=== PATIENT | female | born 1950 | race Caucasian/White ===

== ENCOUNTER → 2017-10-19 | Outpatient (CLI) | payer MEDICARE, SELFPAY | PROVIDERS: Visit Provider Family Medicine | DX: Z12.31 Encounter for screening mammogram for malignant neoplasm of breast (principal) | CPT/HCPCS: 77067; G0202 ==

== ENCOUNTER → 2018-11-09 09:50 | Outpatient (CLI) | payer MEDICARE, SELFPAY ==
--- NOTE | 2018-11-09 09:57 | MM_ITS ---
MM Dig screening mamm BI w/CAD ORDERING PHYSICIAN : Dylan Salinas MD PATIENT AGE: 68 years GENDER: Female COMPARISON: September 2016, 2016, August 2015 INDICATION: ITS.REASON: SCREENING routine screening. No hormones. No new complaints.. Family history. Sister with breast cancer age 50 TECHNIQUE: Standard CC and MLO images were obtained. R2 CAD reviewed. FINDINGS: Moderate density breast. Mild asymmetry appears similar to previous studies from September 2016, 2016, August 2015 Question slightly decreased sensitivity in areas of greater density but . No dominant or suspicious mass. No suspicious calcifications. No interval change. Bilateral follow-up in one year.: IMPRESSION: . Stable bilateral mammogram no new areas of significant concern. . BI-RADS Category: 2 Benign Finding(s) RECOMMENDED FOLLOW-UP: 1YR 1 YEAR FOLLOW-UP (A letter has been sent to the patient regarding results of the study.)
== END ==
PROVIDERS: PCP Family Medicine; Visit Provider Family Medicine
DX: Z12.31 Encounter for screening mammogram for malignant neoplasm of breast (principal)
CPT/HCPCS: 77067

== ENCOUNTER → 2019-08-17 09:59 | Outpatient (CLI) | payer MEDICARE, SELFPAY ==
--- NOTE | 2019-08-17 10:04 | XR_ITS ---
PROCEDURE: XR KNEE RT 3V CLINICAL INDICATION: RT KNEE PAIN, posterior knee pain for 1 year COMPARISON: No exams were available for comparison FINDINGS: There is joint space narrowing medially with minimal spurring of the medial tibial plateau and medial femoral condyle. There spurring of the tibial spines as well. There is mild narrowing of the patellofemoral space with spurring of the superior and inferior borders of the patella. There is no definite effusion. There is a small periarticular ossification adjacent to the posterior lateral femoral condyle. IMPRESSION: [id number] osteoarthritic changes of the knee as noted Dictated by: Dr. Scotty Gibbons MD 08/17/2019 10:[address] Scotty Gibbons MD in [place] 08/17/2019 10:27
== END ==
PROVIDERS: PCP Family Medicine; Visit Provider Family Medicine
DX: M25.561 Pain in right knee (principal)
CPT/HCPCS: 73562

== ENCOUNTER 2019-10-12 08:00 | Outpatient (RCR) | payer MEDICARE, SELFPAY ==
--- NOTE | 2019-09-26 16:38 | HMH.PTOPEV ---
PT Outpatient Evaluation Rehab PT Outpatient Evaluation Start: 09/26/19 16:08 Freq: Status: Active Protocol: Document 09/26/19 16:27 ESTELLA (Rec: 09/26/19 16:38 ESTELLA [id number]) Electronically Signed By Cody Waldrop, PT 09/26/19 16:27 Outpatient Therapy Subjective History Subjective History Patient is a 68 year old female presenting to outpatient PT with reports of r knee pain that has progressively gotten worse over the past month. Pain is of insidious onset. Most recent diagnostics indicate R knee OA significantly worse in the medial compartment. Comorbidities include HTN and HLD. Chief Complaint Pain,Stiff,Swelling,Weakness Symptom Type Ache Symptoms Relieved By Rest/Positioning,Ice,OTC Meds Symptoms Aggravated By Standing,Bending/Stooping, Physical Activity,Walking Prior Functional Limitations None Current Functional Limitations Lifting,Housework,Standing, Squatting,Recreation Activity, Walking,Stairs,Balance,Bending /Stooping Symptom Description Constant but Variable Level of pain today (0-10) 5 Pain scale - at its best (0-10) 5 Pain scale - at its worst (0-10) 7 Hip/Knee Eval Gait Observation General Gait Pattern Observation Antalgic Gait,Decrease Weight Bear (R) Assistive Device Assistive Devices None / NA Palpation Tenderness right Knee Palpation Finding Tenderness Knee Palpation Overall Comment Medial joint line, lateral hamstring MMT Hip Flexion Strength Grade 4- Good- Hip Abduction Strength Grade 4- Good- Hip Adduction Strength Grade 4- Good- Hip Extension Strength Grade 4- Good- Hip External Rotation Strength Grade 3+ Fair+ Hip Internal Rotation Strength Grade 3+ Fair+ Knee Extension Strength Grade 3+ Fair+ Knee Flexion Strength Grade 4- Good- ROM Hip ROM Reason Not Measured Within Functional Limits Knee Extension Active Range of Motion ( -7 degrees) Knee Flexion Active Range of Motion ( 79 degrees) Special Tests Knee Anterior Drawer Test Negative Right Knee Anterior Christian Test Negative Right Knee Pivot Shift Test Negative Right Knee Posterior Sag ([place] Drawer) Test Negative Right Knee Valgus Stress Test Negative Right Knee Varus Stress Test
== END 2019-10-12 08:05 | disposition home or self-care (01) ==
LOC: PT 08:00
PROVIDERS: PCP Family Medicine; Visit Provider Family Medicine
DX: M17.11 Unilateral primary osteoarthritis, right knee (principal)
CPT/HCPCS: 97010; 97014; 97110; 97140; 97163; G0283

== ENCOUNTER → 2020-07-18 10:48 | Outpatient (CLI) | payer MEDICARE, SELFPAY ==
--- NOTE | 2020-07-18 10:52 | MM_ITS ---
PROCEDURE: MM DIG SCREENING MAMM BI W/CAD Digital Breast Tomosynthesis Included CLINICAL INDICATION: SCREENING There is a history of breast cancer patient's sister diagnosed after menopause. COMPARISON: MG DMSB DIG MAMM-SCREEN ANDRE from 10/13/2016 MG DMSB DIG MAMM-SCREEN ANDRE W/CAD from 10/19/2017 MG [facility] MM Dig screening mamm BI w/CAD from 11/09/2018 TECHNIQUE: Standard CC and MLO images and 3D Tomosynthesis was obtained. R2 CAD reviewed. FINDINGS: Scattered fibroglandular densities are seen in both breasts primarily upper outer quadrants. There are couple of benign-appearing calcifications in each breast. There is no suspicious lesion in either breast and no suspicious microcalcifications. IMPRESSION: Mild to moderate breast density with no suspicious lesions seen BI-RAD Category: 2 Benign Finding(s) FOLLOW-UP: 1YR 1 Year Follow-up (A letter has been sent to the patient regarding results of the study.) Dictated by: Dr. Scotty Gibbons MD 07/20/2020 17:23 Dr. Scotty Gibbons MD in [place] 07/20/2020 17:23
== END ==
PROVIDERS: PCP Family Medicine; Visit Provider Family Medicine
DX: Z12.31 Encounter for screening mammogram for malignant neoplasm of breast (principal)
CPT/HCPCS: 77063; 77067

== ENCOUNTER → 2021-08-13 15:15 | Outpatient (CLI) | payer MEDICARE, SELFPAY ==
--- NOTE | 2021-08-13 15:17 | MM_ITS ---
PROCEDURE INFORMATION: Exam: MG Bilateral Screening 3D Mammography Exam date and time: 08/13/2021 3:17 PM Age: 70 years old Clinical indication: Encounter for screening mammogram for malignant neoplasm of breast. Family history of breast carcinoma. TECHNIQUE: Imaging protocol: Bilateral screening tomosynthesis and 2D mammography including computer-aided detection (CAD) when performed. Comparison: 07/18/2020. 11/09/2018. 10/19/2017. FINDINGS: MAMMOGRAPHY: Breast composition: The breasts are heterogeneously dense, which may obscure small masses. Mass: No suspicious masses. Architectural distortion: No suspicious distortion. Calcifications: No suspicious calcifications. Asymmetric density: None. Skin thickening: None. Axillary adenopathy: None. IMPRESSION: No mammographic evidence of malignancy. Annual screening is recommended unless otherwise clinically indicated. Given the reported risk factors coupled with the patient's breast density, a breast cancer risk assessment may prove useful for further evaluation. ASSESSMENT: BI-RADS Category 1: Negative
== END ==
PROVIDERS: PCP Family Medicine; Visit Provider Family Medicine
DX: Z12.31 Encounter for screening mammogram for malignant neoplasm of breast (principal)
CPT/HCPCS: 77063; 77067

== ENCOUNTER → 2022-02-23 14:13 | Outpatient (CLI) | payer MEDICARE, SELFPAY ==
--- NOTE | 2022-02-23 14:16 | US_ITS ---
FINAL REPORT CLINICAL HISTORY: ENLARGED THYROID,HYPERCHOLESTEROLEMIA FINDINGS: Sonographic images of the thyroid were obtained. The right lobe of the thyroid measures 4.0 x 7.4 x 7.4 cm. The left lobe of the thyroid measures 3.6 x 8.1 x 6.0 cm. The thyroid is diffusely nodular and heterogeneous. A single discrete mass is not seen. The appearance is that of a diffuse goiter. IMPRESSION: Findings consistent with diffuse goiter. Reviewed, Interpreted and Dictated by Chandler Tompkins MD Transcribed by Queenie Espinoza Authenticated by Chandler Tompkins MD on 02/23/2022 04:44:54 PM [facility]
== END ==
PROVIDERS: PCP Family Medicine; Visit Provider Family Medicine
DX: E04.9 Nontoxic goiter, unspecified (principal); E78.00 Pure hypercholesterolemia, unspecified
CPT/HCPCS: 76536

== ENCOUNTER → 2022-09-06 16:51 | Outpatient (CLI) | payer MEDICARE, SELFPAY ==
--- NOTE | 2022-09-06 16:58 | MM_ITS ---
PROCEDURE INFORMATION: Exam: MG Bilateral Screening 3D Mammography Exam date and time: 09/06/2022 4:49 PM Age: 71 years old Clinical indication: Screening examination. Her sister had breast cancer at age 50. TECHNIQUE: Imaging protocol: Bilateral Screening tomosynthesis and 2D mammography including computer-aided detection (CAD) when performed. COMPARISON: 1. MG MM DIG SCREENING MAMM BI W/CAD 08/13/2021 3:18 PM 2. MG MM DIG SCREENING MAMM BI W/CAD 07/18/2020 11:02 AM 3. MG [facility]BI MM Dig screening mamm BI w/CAD 11/09/2018 10:26 AM 4. MG DMSB DIG MAMM-SCREEN ANDRE W/CAD 10/19/2017 8:40 AM FINDINGS: MAMMOGRAPHY: Breast composition: There are scattered areas of fibroglandular density. Mass: None. Architectural distortion: None. Calcifications: No suspicious calcifications. Asymmetric density: None. Skin thickening: None. Axillary adenopathy: None. IMPRESSION: No mammographic evidence of malignancy. Annual screening is recommended unless otherwise clinically indicated. ASSESSMENT: BI-RADS Category 1: Negative
== END ==
PROVIDERS: PCP Internal Medicine Adolescent Medicine; Visit Provider Internal Medicine Adolescent Medicine
DX: Z12.31 Encounter for screening mammogram for malignant neoplasm of breast (principal)
CPT/HCPCS: 77063; 77067

== ENCOUNTER → 2023-08-01 09:05 | Outpatient (CLI) | payer MEDICARE, SELFPAY ==
--- NOTE | 2023-08-01 09:11 | XR_ITS ---
FINAL REPORT CLINICAL HISTORY: POST MENOPAUSAL FINDINGS: Using L1-4, the bone mineral density of the spine is 1.174 g/cm2, corresponding to T-score of 1.2. Using the left hip, the bone mineral density of the femoral neck is 0.832 g/cm2, corresponding to a T-score of -0.1. Using the right hip: The bone mineral density of the femoral neck is 0.939 g/cm2, corresponding to a T-score of 0.8. IMPRESSION: Normal bone mineral density of the lumbar spine and hips. NOTE: T-score: Standard deviation compared with peak bone mass of young adult mean. *Following the recommendations of the International Society of Bone densitometry, classification of hip BMD is based on the lower of two T-scores; total hip or femoral neck. Reviewed, Interpreted and Dictated by Momo Law III, MD Transcribed by Sonam Epstein Authenticated and [facility]
== END ==
PROVIDERS: PCP Internal Medicine Adolescent Medicine; Visit Provider Internal Medicine Adolescent Medicine
DX: Z78.0 Asymptomatic menopausal state (principal)
CPT/HCPCS: 77080

== ENCOUNTER → 2023-10-13 12:55 | Outpatient (CLI) | payer MEDICARE, SELFPAY ==
--- NOTE | 2023-10-13 13:01 | MM_ITS ---
PROCEDURE INFORMATION: Exam: MG Bilateral Screening 3D Mammography Exam date and time: 10/13/2023 12:58 PM Age: 72 years old Clinical indication: Screening examination TECHNIQUE: Imaging protocol: Bilateral Screening tomosynthesis and 2D mammography including computer-aided detection (CAD) when performed. COMPARISON: 1. MG MM DIG SCREENING MAMM BI W/CAD 09/06/2022 4:49 PM 2. MG MM DIG SCREENING MAMM BI W/CAD 08/13/2021 3:18 PM FINDINGS: MAMMOGRAPHY: Breast composition: There are scattered areas of fibroglandular density. Mass: None. Architectural distortion: None. Calcifications: No suspicious calcifications. Asymmetric density: None. Skin thickening: None. Axillary adenopathy: None. IMPRESSION: No mammographic evidence of malignancy. Annual screening is recommended unless otherwise clinically indicated. ASSESSMENT: BI-RADS Category 1: Negative
== END ==
PROVIDERS: PCP Internal Medicine Adolescent Medicine; Visit Provider Internal Medicine Adolescent Medicine
DX: Z12.31 Encounter for screening mammogram for malignant neoplasm of breast (principal)
CPT/HCPCS: 77063; 77067

== ENCOUNTER 2024-10-15 12:52 | Outpatient (CLI) | payer MEDICARE, SELFPAY ==
--- NOTE | 2024-10-15 12:55 | MM_ITS ---
PROCEDURE INFORMATION: Exam: MG Bilateral Screening 3D Mammography Exam date and time: 10/15/2024 12:42 PM Age: 73 years old Clinical indication: Screening examination. Her sister had breast cancer age 50. TECHNIQUE: Imaging protocol: Bilateral Screening tomosynthesis and 2D mammography including computer-aided detection (CAD) when performed. COMPARISON: 1. MG MM DIG SCREENING MAMM BI W/CAD 10/13/2023 12:58 PM 2. MG MM DIG SCREENING MAMM BI W/CAD 09/06/2022 4:49 PM 3. MG MM DIG SCREENING MAMM BI W/CAD 08/13/2021 3:18 PM 4. MG MM DIG SCREENING MAMM BI W/CAD 07/18/2020 11:02 AM FINDINGS: MAMMOGRAPHY: Breast composition: There are scattered areas of fibroglandular density. Mass: None. Architectural distortion: None. Calcifications: No suspicious calcifications. Asymmetric density: None. Skin thickening: None. Axillary adenopathy: None. IMPRESSION: No mammographic evidence of malignancy. Annual screening is recommended unless otherwise clinically indicated. ASSESSMENT: BI-RADS Category 1: Negative.
== END 2024-10-15 23:59 | disposition home or self-care (01) ==
LOC: RAD 12:53
PROVIDERS: PCP Internal Medicine Adolescent Medicine; Visit Provider Internal Medicine Adolescent Medicine
DX: Z12.31 Encounter for screening mammogram for malignant neoplasm of breast (principal)
CPT/HCPCS: 77063; 77067

== ENCOUNTER 2025-10-22 13:52 | Outpatient (CLI) | payer MEDICARE, SELFPAY ==
--- OUTSIDE RECORDS SUMMARY | 2025-10-11 08:50 | XMS_ITS | Encounter Summary ---
[facility] Address [address] [place] [id number] Care Team Providers Care Piercing Artist Name Role Phone Dylan Vicente MD Primary Care Provider [phone] Reason for Visit * Reason Comments Follow-up 3 month f/u-- Primar y osteoarthritis of left knee Encounter Details Date Type Department Care Team (Late st Contact Info) Description 10/11/2025 8:50 AM EST Office Visit [facility] [address] [address] Osei Estevez MD [address] [place] [address] Primary osteoarthritis of right knee (Primary Dx) Social History Tobacco Use Types Packs/Day Years Used Date Smoking Tobacco: Never Smokeless Tobacco: Never Tobacco Cessation:Counseling Given: Not Answered Alcohol Use Standard Drinks/Week Comments Never 0 (1 standard drink = 0.6 oz pur e alcohol) AUDIT-C Answer Date Recorded Frequency of Alcohol Consumption Never 10/15/2019 Average Number of Drinks Not on file 019 Frequency of Binge Drinking Not on file 09/30 Comments No Sex and Gender Information Value Date Recorded Sex Assigned at Female 01/14/2025 6:03 PM EDT Legal Sex Female 8:19 AM EST Gender Identity Not on file Sexual Orientation Straight 01/14/2025 6: 03 PM EDT documented as of this encounter Last Filed Vital Signs Vital Sign Reading Time Taken Comments Blood Pressure 148/80 10/11/2025 8:31 AM EST Pulse - - Temperature - - Respiratory Rate - - Oxygen Saturation - - Inhaled Oxygen Concentration - - Weight 95.3 kg (210 lb 3.2 oz) 10/11/2025 8:31 A M EST Height 167.6 cm (5' 5.98 ) 10/11/2025 8:31 AM ES T Body Mass Index 33.94 10/11/2025 8:31 AM EST documented in this encounter Progress Notes * Osei Estevez MD - 10/11/2025 8:50 AM EST Images from the original note were not included. [facility] [place] Orthopaedic Surgery Clinic Note Subjective Chief Complaint Patient presents with Follow-up 3 month f/u-- Primary osteoarthritis of left knee HPI It has been 3 month(s) since Ms. Angeles's last visit. She returns to clinic today for follow-up ofleft knee arthritis. The issue has been ongoing for 7 year(s). She rates her pain a 8/10 on the pain scale. Previous/current treatments: NSAIDS, viscosupplementation (last injection 07/05/25), and steroid injection (last injection 01/21/25). Current symptoms: pain, grinding, and stiffness. The pain isworse with standing, climbing stairs, and rising from seated position; pain medication and/or NSAIDimprove the pain. Overall, she is doing worse. She has reached a point where she would like to proceed with left total knee arthroplasty surgery. She has exhausted conservative treatment. No history of clots or clotting disorders. No blood thinners. She does have diabetes, and most recent hemoglobin A1c was 6.1. Her is able to help out postoperatively. She did well following right total knee arthroplasty surgery back in 2019, and was able to discharge same day. I have reviewed the following portions of the patient's history and agree with: History of Present Illness and Review of Systems Patient Active Problem List Diagnosis Primary osteoarthritis of right knee HTN (hypertension) Hyperlipidemia Overactive bladder Elevated hemoglobin A1c Status post total right knee replacement Degenerative arthritis of left knee Past Medical History: Diagnosis Date Abnormality of both breasts on screening mammogram Hyperlipidemia Hypertension Knee swelling 2018 OAB (overactive bladder) Osteoarthritis Wears glasses Past Surgical History: Procedure Laterality Date JOINT REPLACEMENT 03/25/20 TOTAL KNEE ARTHROPLASTY Right 03/25/2020 Procedure: TOTAL KNEE ARTHROPLASTY RIGHT; Surgeon: Osei Estevez MD; Location: [facility]; Service: Orthopedics; Laterality: Right; TUBAL ABDOMINAL LIGATION Family History Problem Relation Name Age of Onset Cancer Mother Roxy Mast Pancreatic Cancer Heart attack Father Cancer Sister Jaz Toure Breast Cancer, later Bone Cancer Social History Socioeconomic History Marital status: Tobacco Use Smoking status: Never Smokeless tobacco: Never Vaping Use Vaping status: Never Used Substance and Sexual Activity Alcohol use: Never Drug use: Never Sexual activity: Not Currently Partners: Male control/protection: Post-menopausal Current Outpatient Medications on File Prior to Visit Medication Sig Dispense Refill amLODIPine-benazepril (LOTREL) 10-40 MG per capsule aspirin 81 MG EC tablet Take 1 tablet by mouth Daily. Resume in 1 month atorvastatin (LIPITOR) 40 MG tablet Take 1 tablet by mouth Daily. Farxiga 10 MG tablet montelukast (SINGULAIR) 10 MG tablet Take 1 tablet by mouth Daily. Multiple Vitamins-Minerals (MULTIVITAMIN ADULT PO) Take 1 tablet by mouth Daily. oxybutynin XL (DITROPAN-XL) 10 MG 24 hr tablet Take 1 tablet by mouth Daily. [DISCONTINUED] meloxicam (MOBIC) 15 MG tablet No current facility-administered medications on file prior to visit. No Known Allergies Review of Systems Constitutional: Negative for activity change, appetite change, chills, diaphoresis, fatigue, fever and unexpected weight change. HENT: Negative for congestion, dental problem, drooling, ear discharge, ear pain, facial swelling, hearing loss, mouth sores, nosebleeds, postnasal drip, rhinorrhea, sinus pressure, sneezing, sore throat, tinnitus, trouble swallowing and voice change. Eyes: Negative for photophobia, pain, discharge, redness, itching and visual disturbance. Respiratory: Negative for apnea, cough, choking, chest tightness, shortness of breath, wheezing andstridor. Cardiovascular: Negative for chest pain, palpitations and leg swelling. Gastrointestinal: Negative for abdominal distention, abdominal pain, anal bleeding, blood in stool,constipation, diarrhea, nausea, rectal pain and vomiting. Endocrine: Negative for cold intolerance, heat intolerance, polydipsia, polyphagia and polyuria. Genitourinary: Negative for decreased urine volume, difficulty urinating, dysuria, enuresis, flank pain, frequency, genital sores, hematuria and urgency. Musculoskeletal: Positive for arthralgias. Negative for back pain, gait problem, joint swelling, myalgias, neck pain and neck stiffness. Skin: Negative for color change, pallor, rash and wound. Allergic/Immunologic: Negative for environmental allergies, food allergies and immunocompromised state. Neurological: Negative for dizziness, tremors, seizures, syncope, facial asymmetry, speech difficulty, weakness, light-headedness, numbness and headaches. Hematological: Negative for adenopathy. Does not bruise/bleed easily. Psychiatric/Behavioral: Negative for agitation, behavioral problems, confusion, decreased concentration, dysphoric mood, hallucinations, self-injury, sleep disturbance and suicidal ideas. The patientis not nervous/anxious and is not hyperactive. Objective Physical Exam BP 148/80 Ht 167.6 cm (65.98 ) Wt 95.3 kg (210 lb 3.2 oz) BMI 33.94 kg/m?? Body mass index is 33.94 kg/m??. General: Mental Status: Alert Appearance: Cooperative, in no acute distress Build and Nutrition: Well-nourished well-developed female Orientation: Alert and oriented to person, place and time Posture: Normal Gait: Limp on the left Integument: Left knee: No skin lesions, no rash, no ecchymosis Lower Extremities: Left Knee: Tenderness: None Effusion: 1+ Swelling: None Crepitus: Positive Range of motion: Extension: 5?? Flexion: 120?? Instability: No varus laxity, no valgus laxity, negative anterior drawer Deformities: Varus Imaging/Studies Imaging Results (Last 24 Hours) No results found for the last 24 hours. No new imaging today. Assessment and Plan Diagnoses and all orders for this visit: 1. Primary osteoarthritis of right knee (Primary) - Case Request; Standing - Instructions on coughing, deep breathing, and incentive spirometry.; Future - CBC and Differential; Future - Comprehensive metabolic panel; Future - Protime-INR; Future - APTT; Future - Hemoglobin A1c; Future - Sedimentation rate; Future - C-reactive protein; Future - Tranexamic Acid 1,000 mg in sodium chloride 0.9 % 100 mL - Tranexamic Acid 1,000 mg in sodium chloride 0.9 % 100 mL - ethyl alcohol 62 % 2 each - ceFAZolin (ANCEF) 2 g in sodium chloride 0.9 % 100 mL IVPB - acetaminophen (TYLENOL) tablet 1,000 mg - meloxicam (MOBIC) tablet 15 mg - pregabalin (LYRICA) capsule 75 mg - Case Request Other orders - HYDROcodone-acetaminophen (NORCO) 5-325 MG per tablet; Take 1 tablet by mouth Every 12 (Twelve) Hours As Needed for Moderate Pain. Dispense: 20 tablet; Refill: 0 - Outpatient In A Bed; Standing - Follow Anesthesia Guidelines / Protocol; Future - Follow Anesthesia Guidelines / Protocol; Standing - Nerve Block; Standing - Verify NPO Status; Standing - Verify The Time Patient Completed ERAS Hydration Drink; Standing - SCD (sequential compression device)- to be placed on patient in Pre-op; Standing - Clip operative site; Standing - Provide Patient With Carbo Loading Instructions - Provide Patient With ERAS Booklet(s)/Handout - Chlorhexidine Gluconate 4 % solution; Apply 1 Application topically to the appropriate area as directed Daily. Shower with hibiclens solution as directed for 5 days prior to surgery Dispense: 236 mL; Refill: 0 1. Primary osteoarthritis of right knee I reviewed my findings with the patient. We discussed options for her right knee again today, she is ready to proceed with right total knee arthroplasty surgery. She has exhausted conservative treatment. Please see my counseling note for details. She is a candidate for outpatient surgery. I did provide a limited prescription of [place] to be used judiciously preoperatively. Surgical Counseling I have informed the patient of the diagnosis and the prognosis. Exhaustive conservative treatment modalities have not resulted in intermediate pain relief. The symptoms have progressed to the point of daily pain and inability to perform activities of daily living without significant pain. The patient has reached the point of desiring to proceed with total knee arthroplasty after discussing the risks, benefits and alternatives to the procedure. The surgical procedure itself was discussed in detail.Risks of the procedure were discussed, which included but are not limited to, bleeding, infection, damage to blood vessels and nerves, incomplete pain relief, loosening of the prosthesis (early or late), deep infection (early or late), need for further surgery, loss of limb, deep venous thrombosis,pulmonary embolus, , heart attack, stroke, kidney failure, liver failure, and anesthetic complications. In addition, the potential for deep infection developing in the future was discussed, which could require further surgery. The knee would have to be re-opened, debrided, and potentially remove the prosthesis, which may or may not be replaced in the future. Also, the possibility for loosening of the prosthesis has been mentioned. If the prosthesis loosened, a revision arthroplasty could be performed, with results that are not as predictable compared to the original procedure. The typical rehabilitative course has also been discussed, and full recovery may take up to a year to see the maximum benefit. The importance of patient cooperation in the rehabilitative efforts has also been discussed. No guarantees were given. The patient understands the potential risks versus the benefits and desires to proceed with total knee arthroplasty at a mutually convenient time. Return for surgery. Osei Estevez MD 10/11/25 09:20 EST Dictated Utilizing [employer] Dictation documented in this encounter Plan of Treatment Upcoming Encounters Date Type Department Care Team (Late st Contact Info) Description 11/28/2025 9:30 AM EST Pre-Admission Testing [facility] PREADMISSION T [address] [place] [address] 01/10/2026 10:30 AM EDT Office Visit [facility] [address] [facility] [address] [place] [id number] Kelley Leos PA-C [address] [facility] [address] [place] [address] Scheduled Orders Name Type Priority Associated Diagnoses Orde r Schedule Instructions on coughing, deep breathing, and incentive spirometry. Respiratory Care Routine Primary osteoarthritis of right knee Expected: 10/16/2025, Expires: 10/11/2026 CBC and Differential Lab Panel Routine Primary osteoarthritis of right knee Expected: 10/16/2025 (Approximate), Expires: 10/11/2026 Comprehensive metabolic panel Lab Routine Primary osteoarthritis of right knee Expected: 10/16/2025 (Approximate), Expires: 01/10/2027 Protime-INR Lab Routine Primary osteoarthritis of right knee Expected: 10/16/2025 (Approximate), Expires: 10/11/2026 APTT Lab Routine Primary osteoarthritis of right knee Expected: 10/16/2025 (Approximate), Expires: 10/11/2026 Hemoglobin A1c Lab Routine Primary osteoarthritis of right knee Expected: 10/16/2025 (Approximate), Expires: 10/11/2026 Sedimentation rate Lab Routine Primary osteoarthritis of right knee Expected: 10/16/2025 (Approximate), Expires: 10/11/2026 C-reactive protein Lab Routine Primary osteoarthritis of right knee Expected: 10/16/2025 (Approximate), Expires: 10/11/2026 Scheduled Procedures Name Priority Associated Diagnoses Date/Ti me TOTAL KNEE ARTHROPLASTY WITH CORI ROBOT Primary osteoarthritis of right knee documented as of this encounter Visit Diagnoses Diagnosis Primary osteoarthritis of right knee- Primary documented in this encounter Care Teams Piercing Artist Relationship Specialty Start Date End Date Dylan Vicente MD [address] [place] [address] [address] PCP - General Adolescent Medicine 05/24/24 documented as of this encounter
--- NOTE | 2025-10-22 13:54 | MM_ITS ---
PROCEDURE INFORMATION: Exam: MG Bilateral Screening 3D Mammography Exam date and time: 10/22/2025 1:59 PM Age: 75 years old Clinical indication: Screening examination TECHNIQUE: Imaging protocol: Bilateral Screening tomosynthesis and 2D mammography including computer-aided detection (CAD) when performed. COMPARISON: 1. MG MM DIG SCREENING MAMM BI W/CAD 10/15/2024 12:42 PM 2. MG MM DIG SCREENING MAMM BI W/CAD 10/13/2023 12:58 PM FINDINGS: MAMMOGRAPHY: Breast composition: There are scattered areas of fibroglandular density. Mass: No new or suspicious masses Architectural distortion: None. Calcifications: No suspicious calcifications. Asymmetric density: None. Skin thickening: None. Axillary adenopathy: None. IMPRESSION: No mammographic evidence of malignancy. Annual screening is recommended unless otherwise clinically indicated. ASSESSMENT: BI-RADS Category 1: Negative.
--- OUTSIDE RECORDS SUMMARY | 2025-10-22 14:06 | XMS_ITS | Encounter Summary ---
[facility] [address] [place] [address] Care Team Providers Care Prototype Technician Name Role Phone Dylan Vicente MD Primary Care Provider [phone] Encounter Details Date Type Department Care Team (Latest Contact Info) Description 10/11/2025 Travel Social History Tobacco Use Types Packs/Day Years Used Date Smoking Tobacco: Never Smokeless Tobacco: Never Alcohol Use Standard Drinks/Week Comments Never 0 [...] PM EDT documented as of this encounter Plan of Treatment Upcoming Encounters Date Type Department Care Team (Late st Contact Info) Description 11/28/2025 9:30 AM EST Pre-Admission Testing [facility] PREADMISSION T [address] [place] [address] 01/10/2026 10:30 AM EDT Office Visit [facility] [address] [facility] [address] [place] [address] Kelley Leos PA-C [address] [place] [address] Scheduled Procedures Name Priority Associated Diagnoses Date/Ti me TOTAL KNEE ARTHROPLASTY WITH CORI ROBOT Primary osteoarthritis of right knee documented as of this encounter Visit Diagnoses Not on filedocumented in this encounter Care Teams Prototype Technician Relationship Specialty Start Date End Date Dylan Vicente MD [facility] [address] [place] [address] PCP - General Adolescent Medicine 05/24/24 documented as of this encounter
--- OUTSIDE RECORDS SUMMARY | 2025-10-22 14:06 | XMS_ITS | Clinical Summary ---
[facility] Address [address] [place] [address] Care Team Providers Care Supervisor [employer] Name Role Phone Dylan Vicente MD Primary Care Provider [phone] Allergies No known active allergies Medications atorvastatin (LIPITOR) 40 MG tablet Take 1 tablet by mouth Daily. 9 Active oxybutynin XL (DITROPAN-XL) 10 MG 24 hr tablet Take 1 tablet by mouth Daily. 9 Active Multiple Vitamins-Minera ls (MULTIVITAMIN ADULT PO) Take 1 tablet by mouth Daily. Active aspirin 81 MG EC tablet Take 1 tablet by mouth Daily. Resume in 1 month 0 Active Farxiga 10 MG tablet 3 Active amLODIPine-daphne zepril (LOTREL) 10-40 MG per capsule 5 Active montelukast (SINGULAIR) 10 MG tablet Take 1 tablet by mouth Daily. 5 Active HYDROcodone-dean taminophen (NORCO) 5-325 MG per tablet Take 1 tablet by mouth Every 12 (Twelve) Hours As Needed for Moderate Pain. 20 tablet 10/11/2025 9:31 AM EST 5 Active Chlorhexidine Gluconate 4 % solution Shower with solution as directed for 5 days prior to surgery 236 mL 10/11/2025 9:31 AM EST 5 Active meloxicam (MOBIC) 15 MG tablet 4 10/11/20 25 Discontinu ed(*Therap y completed) Active Problems Problem Noted Date Diagnosed Date Degenerative arthritis of left knee 10/11/2025 HTN (hypertension) 03/25/2020 Hyperlipidemia 03/25/2020 Overactive bladder 03/25/2020 Elevated hemoglobin A1c 03/25/2020 Status post total right knee replacement 020 Primary osteoarthritis of right knee 12/03/2019 Overview (12/03/2019): Added automatically from request for surgery [id number] Encounters Date Type Department Care Team Description 10/11/2025 8:50 AM EST Office Visit [facility] [address] [facility] [address] [place] [address] Osei Estevez MD Primary osteoarthritis of right knee (Primary Dx) 10/11/2025 Travel from Last 3 Months Family History Medical History Relation Name Comments Heart attack Father Cancer Mother Roxy Mast Pancreatic Canc er Cancer Sister Jaz Toure Breas t Cancer, later Bone Cancer Relation Name Status Comments Father Mother Roxy Mast Sister Jaz Toure Alive Social History Tobacco Use Types Packs/Day Years [...] Orientation Straight 01/14/2025 6: 03 PM EDT Last Filed Vital Signs Vital Sign Reading Time Taken Comments Blood Pressure 148/80 10/11/2025 8:31 AM EST Pulse 70 03/25/2021 10:38 AM EDT Temperature 37.2 C (98.9 F) 03/25/2020 3:43 PM EDT Respiratory Rate 16 03/25/2020 3:43 PM EDT Oxygen Saturation 99% 03/25/2020 3:43 PM EDT Inhaled Oxygen Concentration - - Weight 95.3 kg (210 lb 3.2 oz) 10/11/2025 8:31 A M EST Height 167.6 cm (5' 5.98 ) 10/11/2025 8:31 AM ES T Body Mass Index 33.94 10/11/2025 8:31 AM EST Plan of Treatment Upcoming Encounters Date Type Department Care Team (Late st Contact Info) Description 11/28/2025 9:30 AM EST Pre-Admission Testing [facility] PREADMISSION T [address] [place] [id number] 01/10/2026 10:30 AM EDT Office Visit [facility] [address] [facility] [address] [place] [address] Kelley Leos PA-C [address] [facility] [address] [place], [place] [id number] Scheduled Procedures Name Priority Associated Diagnoses Date/Ti me TOTAL KNEE ARTHROPLASTY WITH CORI ROBOT Primary osteoarthritis of right knee Health Maintenance Due Date Last Done Comments DXA SCAN 1950 LIPID PANEL 1950 MAMMOGRAM 1990 COLON CANCER SCREENING 5 YEA R SIGMOIDOSCOPY [address] COLONOGRAPHY 1995 FECAL OCCULT BLOOD TEST 1995 FIT Testing (1 year) 1995 ZOSTER VACCINE (2 of 2) 01/24/2018 11/29/2017 ANNUAL WELLNESS VISIT 10/15/2019 HEPATITIS C SCREENING 10/15/2019 COVID-19 Vaccine (3 - Modern a risk series) 01/05/2021 12/08/2020, 11/05/2020 Pneumococcal Vaccine 50+ (2 of 2 - PCV) 02/16/2022 02/16/2021 INFLUENZA VACCINE 05/31/2025 07/22/2019, , 07/11/2017, Additional history exists TDAP/TD VACCINES (3 - Td or Tdap) 02/24/2027 017, 02/16/2016 COLOGUARD 01/25/2028 01/24/2025, 10/31, 03/13/2018 COLORECTAL CANCER SCREENING 01/25/2028 Medical Devices Implanted Type Area Consultant Internship Device Identifier Shelf Expiration Date Model / Serial / Lot Sut Contrl Tiss Stratafix Spiral Mncryl Ud 3/0 Pls 60cm - [id number] Implanted:Qty : 1 on 03/25/2020 by Osei Estevez MD at [facility] Implant [employer] DIV OF J AND J [id number] 07/30/2021 [id number] / / [id number] Sut Contrl Tiss Stratafix Symm Pds Plus Arpita Ct-1 45cm - [id number] Implanted:Qty : 1 on 03/25/2020 by Osei Estevez MD at [facility] Implant [employer] DIV OF J AND J [id number] 06/30/2021 [id number] / / [id number] Cmt Bone Simplex/P Full Dose 10/Pk - [id number] Implanted:Qty : 1 on 03/25/2020 by Osei Estevez MD at [facility] Implant Right: Knee DENILSON MINDY [id number] 10/30/2021 [id number] / / [id number] Cmt Bone Simplex/P Full Dose 10/Pk - [id number] Implanted:Qty : 1 on 03/25/2020 by Osei Estevez MD at [facility] Implant Right: Knee DENILSON MINDY [id number] 08/30/2021 [id number] / / [id number] Fem Legion Oxin Ps Nrw Sz6n Rt - [id number] Implanted:Qty : 1 on 03/25/2020 by Osei Estevez MD at [facility] Implant Right: Knee [employer] [id number] 09/21/2029 [id number] / / [id number] Base Tib/Kn Gen2 Nonpor Ti Sz4 Rt - [id number] Implanted:Qty : 1 on 03/25/2020 by Osei Estevez MD at [facility] Implant Right: Knee [employer] [id number] 06/29/2029 [id number] / / [id number] Pat Gen2 Resrf 35mm - [id number] Implanted:Qty : 1 on 03/25/2020 by Osei Estevez MD at [facility] Implant Right: Knee [employer] [id number] 11/26/2029 [id number] / / [id number] Insrt Art Legion Ps Hf Xlpe Sz3to4 10mm - [id number] Implanted:Qty : 1 on 03/25/2020 by Osei Estevez MD at [facility] Implant Right: Knee [employer] [id number] 11/26/2029 [id number] / / [id number] Totl Kn Colton Magaña Nephew - [id number] Implanted:Qty : 1 on 03/25/2020 by Osei Estevez MD at [facility] Implant Right: Knee [employer] [id number] / / Insurance [facility] Medicare Advantage [employer] PPO Advance Directives * CPR (Attempt to Resuscitate) (Latest Code Status on File) Date Activated Date Inactivated Comments 03/25/2020 3:50 PM 03/25/2020 9:14 PM Question Answer Comments Code Status (Patient has no pulse and is not breathing): CPR (Attempt to Resuscitate) Medical Interventions (Patie nt has pulse or is breathing): Full Care Teams Supervisor [employer] Relationship Specialty Start Date End Date Dylan Vicente MD [address] [place] [address] PCP - General Adolescent Medicine 05/24/24
== END 2025-10-22 23:59 | disposition home or self-care (01) ==
LOC: RAD 13:53
PROVIDERS: PCP Internal Medicine Adolescent Medicine; Visit Provider Internal Medicine Adolescent Medicine
DX: Z12.31 Encounter for screening mammogram for malignant neoplasm of breast (principal); R92.323 Mammographic fibroglandular density, bilateral breasts
CPT/HCPCS: 77063; 77067